=== PATIENT | female | born 1960 | race Caucasian/White ===

== ENCOUNTER 2021-11-11 09:09 | Outpatient (CLI) | payer OTHER ==
[2021-11-11 19:36] LABS: SARS-CoV-2 PCR by NAA Not Detected (NotDetected)
== END 2021-11-11 09:10 | disposition home or self-care (01) ==
LOC: CSHLAB 09:09
PROVIDERS: ATTEND Internal Medicine Gastroenterology
DX: Z20.822 Contact with and (suspected) exposure to COVID-19 (principal); Z12.11 Encounter for screening for malignant neoplasm of colon
CPT/HCPCS: U0003; U0005

== ENCOUNTER 2021-11-16 06:55 | Day surgery (SDC) | payer OTHER ==
[2021-11-10 11:35] VITALS: BMI 30.7
[2021-11-16] MEDS ORDERED: Lidocaine 1% MPF 2 ML VIAL ONE (07:48)
[2021-11-16] MEDS ORDERED: PROPOFOL 40 ML ONE (09:51)
[2021-11-16] MEDS ORDERED: Lidocaine 2% MPF 10 ML AMP (For Epidural Use) ONE (09:51)
[2021-11-16] MEDS ORDERED: PROPOFOL 20 ML ONE (10:10)
== END 2021-11-16 11:15 | disposition home or self-care (01) ==
LOC: CSHSDC 06:55
PROVIDERS: ATTEND Internal Medicine Gastroenterology
PROC: 0DJD8ZZ Inspection of Lower Intestinal Tract, Via Natural or Artificial Opening Endoscopic (ICD-10-PCS; principal; 2021-11-16)
DX: R19.5 Other fecal abnormalities (principal); K64.9 Unspecified hemorrhoids; K57.30 Diverticulosis of large intestine without perforation or abscess without bleeding
CPT/HCPCS: J2704